=== PATIENT | male | born 2000 | race Two or more races ===

== ENCOUNTER 2020-09-23 18:14 | Emergency (ER) | payer OTHER ==
[~2020-09-23] VITALS: Ht 182.9 cm; Wt 91.0 kg
[2020-09-23] MEDS: DIPH,PERTUSS(ACELL),TET VAC/PF 0.5 ML SYRINGE. VAX IM ONE (20:52)
[2020-09-23] MEDS ORDERED: MUPI22OI2 TP (21:18)
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
[2020-09-23] MEDS: NEOMY/BACITR/POLYMYXIN OINT PACKET. TP ONE (21:30)
[2020-09-23 21:43] VITALS: BP 135/77
--- NOTE | 2020-09-23 21:51 | RAD ---
Three-view right hand radiographs 09/23/2020 CLINICAL HISTORY: Injury to the right hand. PA, lateral and oblique digital radiographs right hand were obtained. No fracture or dislocation righ t hand is seen. No radiopaque foreign body is noted. IMPRESSION: No fracture or dislocation of the right hand is seen. Electronically signed by: Jermaine Barnes MD (09/23/2020 9:49 PM) [id number]
== END 2020-09-23 21:45 | disposition home or self-care (01) ==
LOC: ER 18:14
DX: S60.511A Abrasion of right hand, initial encounter (principal); S60.418A Abrasion of other finger, initial encounter; F17.200 Nicotine dependence, unspecified, uncomplicated; V47.5XXA Car driver injured in collision with fixed or stationary object in traffic accident, initial encounter; Y92.488 Other paved roadways as the place of occurrence of the external cause; Y93.89 Activity, other specified; Y99.8 Other external cause status
CPT/HCPCS: 73130; 90471; 90715; 99283